=== PATIENT | male | born 1985 | race Caucasian/White ===

== ENCOUNTER 2018-04-24 11:21 | Emergency (ER) | payer OTHER ==
[~2018-04-24] VITALS: Ht 185.4 cm; Wt 72.6 kg
[~2018-04-24 11:21] MED LIST: Norco 10-325 T1 EACH PO; Silvadene20 GM TOP
[2018-04-24 12:22] LABS: BASOPHILS ABSOLUTE AUTO 0.06 K/mm3 (0.00-0.23); BASOPHILS PERCENT AUTO 0 % (0-2); EOSINOPHILS ABSOLUTE AUTO 0.08 K/mm3 (0.00-0.68); EOSINOPHILS PERCENT AUTO 1 % (0-6); Hematocrit 45.4 % (37.0-53.0); Hemoglobin 15.1 g/dL (13.5-17.5); IMMATURE GRAN ABSOLUTE AUTO 0.05 K/mm3 (0.00-0.10); IMMATURE GRAN PERCENT AUTO 0 % (0-1); LYMPHOCYTES ABSOLUTE AUTO 1.26 K/mm3 (0.84-5.20); LYMPHOCYTES PERCENT AUTO 9 % (21-46); MONOCYTES ABSOLUTE AUTO 0.53 K/mm3 (0.16-1.47); MONOCYTES PERCENT AUTO 4 % (4-13); Mean Corpuscular HGB 31.1 pg (26.0-34.0); Mean Corpuscular HGB Conc 33.3 g/dL (31.5-36.5); Mean Corpuscular Volume 93 fL (80-100); Mean Platelet Volume 9.5 fL (9.1-12.4); NEUTROPHILS ABSOLUTE AUTO 11.55 K/mm3 (1.96-9.15); NEUTROPHILS PERCENT AUTO 85 % (41-73); Platelet Count 302 K/mm3 (150-400); RDW Coefficient Variation 11.9 % (11.7-14.2); RDW Standard Deviation 40.9 fL (35.1-46.3); Red Blood Cell Count 4.86 M/mm3 (4.30-5.90); White Blood Cell Count 13.53 K/mm3 (4.00-11.30)
[2018-04-24] MEDS ORDERED: Prozac20 MG PO (12:33)
[2018-04-24] MEDS ORDERED: HYDPAM50 PO (12:33)
[2018-04-24] MEDS ORDERED: Naltrexone HCl50 MG PO (12:33)
[2018-04-24 12:35] LABS: Alanine Aminotransfer (ALT/SGP 27 U/L (12-78); Alk Phos 76 U/L (50-136); Anion Gap 7 mmol/L (6-16); Aspartate Aminotrans (AST/SGOT 22 U/L (12-37); Bilirubin, Total 0.7 mg/dL (0.1-1.0); Blood Urea Nitrogen 11 mg/dL (8-24); Bun/Creatinine Ratio 12.3 (12.0-20.0); CO2, Blood 26 mmol/L (21-32); Calcium, Blood 8.8 mg/dL (8.5-10.1); Chloride, Blood 106 mmol/L (98-108); Creatinine, Blood 0.89 mg/dL (0.60-1.20); Globulin, Blood 3.9 g/dL (2.2-4.0); Glomerular Filtration Rate >60 (60-); Glucose, Blood 94 mg/dL (70-99); Sodium, Blood 139 mmol/L (136-145); Total Protein, Blood 7.9 g/dL (6.4-8.2); Troponin I <0.015 ng/mL (0.000-0.040)
== END 2018-04-24 15:27 | disposition home or self-care (01) ==
LOC: ER 11:21
PROVIDERS: Emergency Medicine
DX: J93.83 Other pneumothorax (principal); F17.200 Nicotine dependence, unspecified, uncomplicated; Z79.899 Other long term (current) drug therapy
CPT/HCPCS: 32551; 36415; 71045; 71046; 80053; 83880; 84484; 85025; 93005; 93010; 96374; 99284; J3010

== ENCOUNTER 2018-04-25 10:39 | Emergency (ER) | payer OTHER ==
[~2018-04-25] VITALS: Ht 185.4 cm; Wt 72.6 kg
[~2018-04-25 10:39] MED LIST changes: +HYDPAM50 PO; +Naltrexone HCl50 MG PO; +Prozac20 MG PO
== END 2018-04-25 12:19 | disposition home or self-care (01) ==
LOC: ER 10:39
DX: R07.89 Other chest pain (principal); F17.200 Nicotine dependence, unspecified, uncomplicated; Z79.899 Other long term (current) drug therapy
CPT/HCPCS: 71045; 71046; 99283